=== PATIENT | male | born 1965 | race Hispanic/Latino ===

== ENCOUNTER 2017-10-22 18:19 | Inpatient (IN) | payer SELFPAY ==
[2017-10-22] MEDS ORDERED: ASPIRIN PO ONE (18:39)
[2017-10-22 18:55] LABS: Basophils # (Auto) 0.1 K/mm3 (0.0-0.1); Eosinophils # (Auto) 0.2 K/mm3 (0.0-0.4); Eosinophils % (Auto) 2.6 % (0.0-4.3); Lymphocytes # (Auto) 1.7 K/mm3 (1.2-5.4); Mean Corpuscular HGB Conc 36 % (32-34); Mean Corpuscular Hemoglobin 31 pg (28-32); Mean Corpuscular Volume 86 fl (84-94); Monocytes # (Auto) 0.5 K/mm3 (0.0-0.8); Platelet Count 346 K/mm3 (140-440); Red Blood Count 4.14 M/mm3 (3.65-5.03)
[2017-10-22 18:57] LABS: Hematocrit 35.6 % (35.5-45.6); Hemoglobin 12.9 gm/dl (11.8-15.2)
--- NOTE | 2017-10-22 19:06 | Emergency Department Report ---
ED Chest Pain HPI - General Chief Complaint: Chest Pain Stated Complaint: HBS/SYNCOPY Time Seen by Provider: 10/22/17 19:00 Source: patient, EMS Mode of arrival: Stretcher Limitations: No Limitations - History of Present Illness Initial Comments: Patient complained of chest radiating to his left shoulder. He also noted that his blood pressure was high when EMS checked it. MD Complaint: chest pain -: Sudden, This afternoon Onset: during rest Pain Location: left chest Pain Radiation: LUE Severity: moderate Severity scale (0 -10): 4 Quality: aching, heaviness Consistency: constant Improves With: nothing Worsens With: nothing re: denies: nausea, vomting, dyspnea Other Symptoms: denies: cough, fever, syncope, palpitations Treatments Prior to Arrival: none Aspirin use within the Past 7 Days: (0) No - Related Data On Oral Contraceptives: No Home Medications Medication Instructions Recorded Confirmed Last Taken Glipizide 10 mg PO BID 10/22/17 10/22/17 Unknown metFORMIN 1,000 mg PO BID 10/22/17 10/22/17 Unknown Allergies Allergy/AdvReac Type Severity Reaction Status Date / Time No Known Allergies Allergy Unverified 10/22/17 18:34 Heart Score - HEART Score History: Moderately suspicious EKG: Non-specific Age: 45-65 Risk factors: 1-2 risk factors Troponin: < normal limit HEART Score: 4 - Critical Actions Critical Actions: 4-6 pts:12-16.6% risk of adverse cardiac event. Should be admitted ED Review of Systems ROS: Stated complaint: HBS/SYNCOPY Other details as noted in HPI Comment: All other systems reviewed and negative Constitutional: denies: chills, fever Eyes: denies: eye pain ENT: denies: ear pain Respiratory: denies: cough, shortness of breath Cardiovascular: chest pain. denies: palpitations, edema, syncope Endocrine: no symptoms reported Gastrointestinal: denies: abdominal pain, nausea, vomiting, diarrhea Genitourinary: denies: urgency, dysuria, frequency Musculoskeletal: denies: back pain Skin: denies: rash, lesions Neurological: denies: headache, weakness Psychiatric: denies: anxiety, depression Hematological/Lymphatic: denies: easy bleeding, easy bruising ED Past Medical Hx - Past Medical History Previous Medical History?: Yes Hx Diabetes: Yes - Social History Smoking Status: Never Smoker Substance Use Type: Alcohol, Marijuana - Medications Home Medications: Home Medications Medication Instructions Recorded Confirmed Last Taken Type Glipizide 10 mg PO BID 10/22/17 10/22/17 Unknown History metFORMIN 1,000 mg PO BID 10/22/17 10/22/17 Unknown History ED Physical Exam - General Limitations: No Limitations General appearance: alert, in no apparent distress - Head Head exam: Present: atraumatic, normocephalic, normal inspection - Eye Eye exam: Present: normal appearance, PERRL, EOMI Pupils: Present: normal accommodation - ENT ENT exam: Present: normal exam, normal orophraynx, mucous membranes moist - Neck Neck exam: Present: normal inspection, full ROM. Absent: tenderness - Respiratory Respiratory exam: Present: normal lung sounds bilaterally. Absent: respiratory distress, wheezes, rales, rhonchi, stridor - Cardiovascular Cardiovascular Exam: Present: regular rate, normal rhythm, normal heart sounds - GI/Abdominal GI/Abdominal exam: Present: soft, normal bowel sounds. Absent: distended, tenderness, guarding, rebound, rigid - Extremities Exam Extremities exam: Present: normal inspection, full ROM, normal capillary refill - Back Exam Back exam: Present: normal inspection, full ROM. Absent: tenderness - Neurological Exam Neurological exam: Present: alert, oriented X3, CN II-XII intact - Psychiatric Psychiatric exam: Present: normal affect, normal mood - Skin Skin exam: Present: warm, dry, intact, normal color. Absent: rash ED Course Vital Signs 10/22/17 10/22/17 10/22/17 18:34 18:47 19:00 Temperature 98.2 F Pulse Rate 95 H 92 H 92 H Respiratory 17 22 15 Rate Blood Pressure 144/85 O2 Sat by Pulse 98 Oximetry 10/22/17 10/22/17 10/22/17 19:16 19:30 19:46 Temperature Pulse Rate 93 H 94 H 89 Respiratory 18 19 22 Rate Blood Pressure 131/81 O2 Sat by Pulse Oximetry 10/22/17 10/22/17 10/22/17 19:47 20:00 20:16 Temperature Pulse Rate 91 H 88 92 H Respiratory 16 18 Rate Blood Pressure 131/81 140/85 140/85 O2 Sat by Pulse Oximetry 10/22/17 10/22/17 10/22/17 20:30 20:46 21:00 Temperature Pulse Rate 98 H 87 90 Respiratory 23 20 21 Rate Blood Pressure 140/85 140/85 140/85 O2 Sat by Pulse Oximetry 10/22/17 10/22/17 10/22/17 21:16 21:30 21:46 Temperature Pulse Rate 89 88 93 H Respiratory 22 19 14 Rate Blood Pressure 138/88 138/88 138/88 O2 Sat by Pulse Oximetry 10/22/17 10/22/17 10/22/17 22:00 22:39 22:46 Temperature Pulse Rate 91 H 86 Respiratory 17 21 Rate Blood Pressure 138/88 137/90 137/90 O2 Sat by Pulse Oximetry - Reevaluation(s) Reevaluation #1: 10/22/17 22:59 Patient will be admitted by the hospitalist java [email or web address] application developer Dr Claire Villa for further evaluation and management. XAVIER score - Xavier Score Age > 65: (0) No Aspirin use within the Past 7 Days: (0) No 3 or more CAD Risk Factors: (0) No 2 or more Angina events in past 24 hrs: (0) No Known CAD with more than 50% Stenosis: (0) No Elevated Cardiac Markers: (0) No ST Deviation Greater than 0.5mm: (0) No XAVIER Score: 0 ED Medical Decision Making - Lab Data Result diagrams: 10/22/17 18:44 10/22/17 19:12 - EKG Data -: EKG Interpreted by Me EKG shows normal: sinus rhythm Rate: normal (88) - EKG Data When compared to previous EKG there are: previous EKG unavailable Interpretation: nonspecific ST-T wave parvez, other (No STEMI) - Radiology Data Radiology results: report reviewed, image reviewed - Medical Decision Making Chest Pain. Hyperglycemia. Critical care attestation.: If time is entered above; I have spent that time in minutes in the direct care of this critically ill patient, excluding procedure time. ED Disposition Clinical Impression: Chest pain Qualifiers: Chest pain type: unspecified Qualified Code(s): R07.9 - Chest pain, unspecified Uncontrolled diabetes mellitus Qualifiers: Diabetes mellitus type: type 2 Glycemic state: with hyperglycemia Qualified Code(s): E11.65 - Type 2 diabetes mellitus with hyperglycemia Disposition: OP ADMIT IP TO THIS HOSP Is pt being admited?: Yes Does the pt Need Aspirin: Yes Condition: Stable Instructions: Chest Pain (ED), Diabetes Mellitus Type 2 in Adults (ED) Referrals: PRIMARY CARE, [Primary Care Provider] - 3-5 Days Time of Disposition: 22:00
[2017-10-22] MEDS ORDERED: NITRO-BID 2% TP ONE (19:09)
[2017-10-22] MEDS ORDERED: NACL 0.9% 1000 ML 1,000 ML IV ONE ×2 (19:09)
[2017-10-22 19:18] LABS: Bilirubin,Urine NEG (Negative); Blood,Urine NEG (Negative); Color,Urine Straw (Yellow); Mucus,Urine FEW /HPF; Protein,Urine <15 mg/dL mg/dL (Negative); Urobilinogen,Urine < 2.0 mg/dL (<2.0); WBC,Urine < 1.0 /HPF (0.0-6.0)
[2017-10-22 19:47] LABS: Alanine Aminotransferase 10 units/L (7-56); Albumin 3.7 g/dL (3.9-5); BUN/Creatinine Ratio 13; Blood Urea Nitrogen 8 mg/dL (9-20); Calcium 8.2 mg/dL (8.4-10.2); Hemolysis Index 10
[2017-10-22] MEDS ORDERED: ZOFRAN IV ONE (19:48)
[2017-10-22] MEDS ORDERED: D50W (25GM) Syringe IV PRN (22:36)
[2017-10-22] MEDS ORDERED: TYLENOL PO PRN (22:36)
[2017-10-22] MEDS ORDERED: ZOFRAN IV PRN (22:36)
[2017-10-22] MEDS ORDERED: SODIUM CHLORIDE FLUSH SYRINGE 10 ML IV PRN (22:36)
--- NOTE | 2017-10-22 22:41 | History and Physical Report ---
History of Present Illness Date of examination: 10/22/17 History of present illness: 52-year-old man with a history of hypertension, diabetes comes emergency room complaining of left shoulder and arm numbness and tingling 2 weeks also complained of left substernal chest pain that started 2 days ago, described as a sharp, pressure sensation, intermittent in nature less than 5 minutes, intensity 5/10, no radiation, he can identify exacerbating or relieving factors. Admits to nausea, no diaphoresis palpitation, shortness of breath Review of systems Constitutional: no weight loss, chills, fever Ears, eyes, nose, mouth and throat: no nasal congestion, no nasal discharge, no sinus pressure, no vision change, no red eye. Neck: No neck pain or rigidity. Cardiovascular: no palpitations Respiratory: no cough, shortness of breath Gastrointestinal: no abdominal pain hematochezia Genitourinary : no frequency , no hematuria Musculoskeletal: no joint swelling or muscle ache Integumentary: no rash, no pruritis Neurological: no parathesias, no numbness, no focal weakness Endocrine: no cold or heat intolerance, no polyuria or polydipsia Hematologic/Lymphatic: no easy bruising, no easy bleeding, no gland swelling Allergic/Immunologic: no urticaria, no angioedema. PAST MEDICAL HISTORY: hypertension, diabetes PAST SURGICAL HISTORY: knees X 2 SOCIAL HISTORY: No alcohol, no drugs, + marijuana FAMILY HISTORY: Hypertension Medications and Allergies Allergies Allergy/AdvReac Type Severity Reaction Status Date / Time No Known Allergies Allergy Unverified 10/22/17 18:34 Home Medications Medication Instructions Recorded Confirmed Last Taken Type Glipizide 10 mg PO BID 10/22/17 10/22/17 Unknown History Lisinopril 10 mg PO DAILY 10/22/17 10/22/17 Unknown History Neurontin 300 mg PO TID 10/22/17 10/22/17 Unknown History Xanax 0.5 mg PO TID 10/22/17 10/22/17 Unknown History metFORMIN 1,000 mg PO BID 10/22/17 10/22/17 Unknown History Exam - Physical Exam Narrative exam: Gen. appearance: Patient lying in bed, no apparent distress HEENT: Normocephalic, atraumatic, pupils equally round and reactive to light, extraocular movement intact, and no sclericterus,. No JVD or thyromegaly or nodule,neck supple, no carotid bruit ,mucous membranes moist, no exudate or erythema Heart: S1, S2, regular rate and rhythm Lungs: Clear bilaterally, breathing comfortable Abdomen: Positive bowel sounds, non-tender, nondistended, no organomegaly Extremity:no edema cyanosis, clubbing Skin: no rash, dry, warm Neuro: Oriented 3, cranial nerves II-12 intact, speech is fluent, motor and sensory intact - Constitutional Vitals: Temp Pulse Resp BP Pulse Ox 98.2 F 89 22 138/88 98 10/22/17 18:34 10/22/17 21:16 10/22/17 21:16 10/22/17 21:16 10/22/17 18:34 Results - Labs CBC & Chem 7: 10/22/17 18:44 10/22/17 19:12 Labs: Abnormal lab results 10/22/17 10/22/17 10/22/17 Range/Units 18:44 19:12 21:24 MCHC 36 H (32-34) % RDW 13.0 L (13.2-15.2) % Carbon Dioxide 21 L (22-30) mmol/L BUN 8 L (9-20) mg/dL Creatinine 0.6 L (0.8-1.5) mg/dL Glucose 514 H* (75-100) mg/dL POC Glucose 317 H (70-105) Calcium 8.2 L (8.4-10.2) mg/dL Total Protein 5.7 L (6.3-8.2) g/dL Albumin 3.7 L (3.9-5) g/dL - Imaging and Cardiology EKG: image reviewed Assessment and Plan X-ray of the shoulder reviewed Assessment Dyspnea, rule out ACS Hypertension Diabetes, uncontrolled Plan Admit to medicine Check cardiac enzymes, stress test, cxr IV morphine, aspirin, check fingersticks DVT prophylaxis
--- NOTE | 2017-10-22 23:27 | XRay Report ---
FINAL REPORT PROCEDURE: XR SHOULDER 3+V LT TECHNIQUE: LEFT shoulder radiographs including AP views in internal and external rotation and scapular Y-view. HISTORY: Pain. COMPARISON: No prior studies are available for comparison. FINDINGS: Fracture (s) and/or Dislocation(s): None . Joint space(s): Mild narrowing, osteophytes, and subchondral cystic changes of the acromioclavicular joint. Small subchondral cysts in the greater tuberosity. Soft tissues: Normal . Bone mineralization: Normal . Foreign bodies: None . IMPRESSION: Degenerative changes. No radiographic evidence of displaced fracture.
[2017-10-22 23:28] LABS: Creatine Kinase MB 2.7 ng/mL (0.0-4.0)
[2017-10-22] MEDS: MORPHINE IV PRN (23:44)
[2017-10-22] MEDS ORDERED: MORPHINE ONE (23:51)
--- NOTE | 2017-10-23 00:47 | XRay Report ---
FINAL REPORT PROCEDURE: XR CHEST 1V AP TECHNIQUE: A portable AP chest radiograph was obtained at 10/23/2017 03:47 (T) . HISTORY: Chest pain. COMPARISON: No prior studies are available for comparison. FINDINGS: Heart: Normal. Mediastinum/Vessels: Normal. Lungs/Pleural space: Normal. Bony thorax: No acute osseous abnormality. Life support devices: None. IMPRESSION: No radiographic evidence of acute cardiopulmonary disease.
[2017-10-23 05:26] LABS: Basophils # (Auto) 0.1 K/mm3 (0.0-0.1); Eosinophils # (Auto) 0.2 K/mm3 (0.0-0.4); Eosinophils % (Auto) 3.1 % (0.0-4.3); Hematocrit 35.5 % (35.5-45.6); Hemoglobin 12.6 gm/dl (11.8-15.2); Lymphocytes # (Auto) 2.7 K/mm3 (1.2-5.4); Lymphocytes % (Auto) 37.3 % (13.4-35.0); Mean Corpuscular HGB Conc 36 % (32-34); Mean Corpuscular Hemoglobin 30 pg (28-32); Mean Corpuscular Volume 86 fl (84-94); Monocytes # (Auto) 0.6 K/mm3 (0.0-0.8); Monocytes % (Auto) 7.6 % (0.0-7.3); Platelet Count 307 K/mm3 (140-440); Red Blood Count 4.15 M/mm3 (3.65-5.03)
[2017-10-23 07:22] LABS: Creatine Kinase MB 2.5 ng/mL (0.0-4.0)
[2017-10-23 07:32] LABS: BUN/Creatinine Ratio 17; Blood Urea Nitrogen 10 mg/dL (9-20); Calcium 8.2 mg/dL (8.4-10.2); Hemolysis Index 5
[2017-10-23] MEDS: HumaLOG SUB-Q SCH ×2 (07:52→11:30)
[2017-10-23] MEDS: MORPHINE IV PRN (08:25)
[2017-10-23] MEDS ORDERED: LOVENOX SUB-Q SCH ×2 (10:00)
[2017-10-23] MEDS ORDERED: SODIUM CHLORIDE FLUSH SYRINGE 10 ML IV SCH (10:00)
--- NOTE | 2017-10-23 13:26 | Discharge Summary ---
Providers - Providers Date of Admission: 10/22/17 22:36 Date of discharge: 10/23/17 Attending physician: LEONORA AGUILERA Primary care physician: CIRCULAR CLERK Hospitalization Condition: Stable Hospital course: Patient is a 52-year-old man with a history of hypertension, diabetes mellitus type 2 off glipizide, metformin and novolin ssi who presented to ED complaining of left shoulder/tricep pains with numbness and tingling 2 weeks and left substernal chest pain. Chest pains, most likely costochondritis if stress test negative Left Shoulder pains: referral to outpatient Ortho Hypertension Diabetes, uncontrolled due to noncompliance Smoking cessation encouraged. Disposition: DC-01 TO HOME OR SELFCARE Time spent for discharge: 35 minutes Core Measure Documentation - Palliative Care Palliative Care/ Comfort Measures: Not Applicable - Core Measures Any of the following diagnoses?: none - VTE Discharge Requirements Deep Vein Thrombosis/Pulmonary Embolism Present on Admission: No Has pt received <5 days of overlap therapy or INR<2.0: No Anticoagulant overlap therapy prescribed at discharge: No Contraindication No Overlap Therapy order at DC: Not Indicated Exam - Physical Exam Narrative exam: GEN: WDWN, NAD, Awake, Alert, Orientated x 3 HEENT: NCAT, EOMI, PERRL, OP Clear NECK: supple, no adenopathy, no thyromegaly, no JVD CVS/HEART: RRR, normal S1S2, pulses present bilaterally CHEST/LUNGS: CTA B, Symmetrical chest expansion, good air entry bilaterally GI/Abdomen: soft, NTND, good bowel sounds, no guarding or rebound /Bladder: no suprapubic tenderness, no CVA or paraspinal tenderness EXT/Skin: no c/c/e, no obvious rash MSK: FROM x 4, he is able to move the left shoulder above his head without restriction, so no frozen shoulder Neuro: CN 2-12 grossly intact, no new focal deficits Psych: calm - Constitutional Vitals: Temp Pulse Resp BP Pulse Ox 97.7 F 71 18 134/86 97 10/23/17 07:28 10/23/17 07:49 10/23/17 07:28 10/23/17 07:28 10/23/17 07:28 Plan Activity: other (no strenous activity until cleared by pcp) Diet: low salt, diabetic Special Instructions: record daily BP diary, record blood sugar diary Follow up with: [facility] [Provider Group] - 7 Days HUMBERTO BRICEÑO MD [Staff Physician] - 7 Days Prescriptions: Insulin Regular, Human [Novolin R] 1 dose SQ ACHS PRN #1 vial PRN Reason: Hyperglycemia Lisinopril 10 mg PO DAILY #30 tab metFORMIN 1,000 mg PO BID #60 Neurontin 300 mg PO TID #90 tab Xanax 0.5 mg PO TID PRN #15 PRN Reason: Anxiety
[2017-10-23 14:00] VITALS: BP 141/86
== END 2017-10-23 15:00 | disposition home or self-care (01) | DRG 206 ==
LOC: ED 18:19 → 4A 22:36
PROVIDERS: ADMIT Internal Medicine; ATTEND Internal Medicine
DX: M94.0 Chondrocostal junction syndrome [Tietze] (principal); I10 Essential (primary) hypertension; F12.90 Cannabis use, unspecified, uncomplicated; E11.65 Type 2 diabetes mellitus with hyperglycemia; M25.512 Pain in left shoulder; Z82.49 Family history of ischemic heart disease and other diseases of the circulatory system; Z79.84 Long term (current) use of oral hypoglycemic drugs; Z79.01 Long term (current) use of anticoagulants; Z79.899 Other long term (current) drug therapy; Z71.6 Tobacco abuse counseling; Z91.14 Patient's other noncompliance with medication regimen
CPT/HCPCS: 36415; 71045; 80048; 80053; 81001; 82550; 82553; 82805; 82962; 83880; 84484; 85025; 93005; 93010; 93017; 96361; 96374; J1650; J2270; J2405; J7030